=== PATIENT | female | born 1985 | race Two or more races ===

== ENCOUNTER 2021-08-21 17:18 | Emergency (ER) | payer MEDICAID, OTHER ==
[~2021-08-21] VITALS: Ht 160 cm; Wt 72.6 kg
[2021-08-21 17:21] VITALS: BP 146/119
[2021-08-21 18:17] LABS: Basophils # (auto) 0.1 10 ^3/uL (0-0.2); Basophils % (auto) 0.6 % (0.0-2.0); Eosinophils # (auto) 0.1 10 ^3/uL (0-0.8); Eosinophils % (auto) 0.8 % (0.0-7.0); Hematocrit 39.9 % (36.0-46.0); Hemoglobin 13.5 g/dL (12.2-16.2); Lymphocytes # (auto) 1.5 10 ^3/uL (0.4-5.4); Lymphocytes % (auto) 13.7 % (10.0-50.0); Mean Corpuscular Hemoglobin 27.8 pg (28.0-32.0); Mean Corpuscular Hgb Conc. 33.7 g/dL (32.0-36.0); Mean Corpuscular Volume 82.5 fL (80.0-100.0); Monocytes # (auto) 0.4 10 ^3/uL (0-1.3); Monocytes % (auto) 3.9 % (0.0-12.0); Neutrophils # (auto) 8.6 10 ^3/uL (1.6-8.6); Red Blood Cells 4.84 10^6/uL (4.0-5.20); Red Cell Distribution Width 14.9 % (11.8-14.3); White Blood Cell 10.6 10^3/uL (4.4-10.8)
[2021-08-21 18:35] LABS: Albumin 3.1 g/dL (3.4-5.0); Calcium 8.7 mg/dL (8.5-10.1); Potassium 3.9 mmol/L (3.5-5.1)
[2021-08-21 18:38] LABS: Bilirubin, Total 0.4 mg/dL (0.2-1.0); Total Protein 7.7 g/dL (6.4-8.2)
[2021-08-21] MEDS ORDERED: metroNIDAZOLE 500MG/100ML 100 ML IV ONE (19:15)
[2021-08-21] MEDS ORDERED: MORPHINE SULFATE INJ 2 MG/ml SYRG IV ONE (19:15)
[2021-08-21] MEDS ORDERED: ONDANSETRON HCL 4 MG/2 ML VIAL IV ONE (19:15)
[2021-08-21 20:46] LABS: Urine Bacteria NONE SEEN /hpf (None Seen); Urine Blood Negative /uL (Negative); Urine Hyaline Cast FEW /lpf (0 - 2); Urine Mucus FEW (None Seen); Urine WBC 105 /hpf (0 - 5)
[2021-08-21] MEDS ORDERED: cefTRIAXone 1GM/50ML D5W 50 ML IV ONE (21:45)
[2021-08-21] MEDS ORDERED: NITR-87 PO (22:00)
== END 2021-08-22 00:45 | disposition home or self-care (01) ==
LOC: ER 17:18
DX: K52.9 Noninfective gastroenteritis and colitis, unspecified (principal); I10 Essential (primary) hypertension; K21.9 Gastro-esophageal reflux disease without esophagitis; Z88.8 Allergy status to other drugs, medicaments and biological substances
CPT/HCPCS: 36415; 74176; 80053; 81001; 82150; 83690; 85025; 96365; 96368; 96375; 99284; J0696; J2405; J3490

== ENCOUNTER 2021-08-31 11:14 | Emergency (ER) | payer MEDICAID ==
[~2021-08-31] VITALS: Ht 160 cm; Wt 75.7 kg
[~2021-08-31 11:14] MED LIST: NITR-87 PO
[2021-08-31 11:16] VITALS: BP 140/85
[2021-08-31 12:20] LABS: Urine Bacteria FEW /hpf (None Seen); Urine Blood Negative /uL (Negative); Urine Hyaline Cast MOD /lpf (0 - 2); Urine Mucus FEW (None Seen); Urine Specific Gravity 1.032 (1.001-1.035); Urine WBC 47 /hpf (0 - 5)
[2021-08-31] MEDS ORDERED: cefTRIAXone SOD 1,000 MG VL IM ONE (13:15)
[2021-08-31] MEDS ORDERED: IBUP800T27 PO (13:22)
[2021-08-31] MEDS ORDERED: CIPR-173 PO (13:22)
[2021-08-31] MEDS ORDERED: ACET-1080 PO (13:27)
== END 2021-08-31 13:28 | disposition home or self-care (01) ==
LOC: ER 11:14
DX: N39.0 Urinary tract infection, site not specified (principal); K21.9 Gastro-esophageal reflux disease without esophagitis; I12.9 Hypertensive chronic kidney disease with stage 1 through stage 4 chronic kidney disease, or unspecified chronic kidney disease; N18.9 Chronic kidney disease, unspecified; Z79.1 Long term (current) use of non-steroidal anti-inflammatories (NSAID); Z79.2 Long term (current) use of antibiotics; Z79.899 Other long term (current) drug therapy; Z88.8 Allergy status to other drugs, medicaments and biological substances
CPT/HCPCS: 81001; 81025; 96372; 99283; J0696

== ENCOUNTER 2024-08-31 15:34 | Emergency (ER) | payer BC, MEDICAID ==
[~2024-08-31] VITALS: Ht 160 cm; Wt 85.9 kg
[~2024-08-31 15:34] MED LIST changes: +ACET-1080 PO; +CIPR-173 PO
[2024-08-31 15:47] VITALS: TEMP 98.1
--- NOTE | 2024-08-31 15:54 | ED.PDOC ---
Musculoskeletal HPI Comments 39-year-old female with a history of hypertension, epilepsy, stage III CKD, anxiety and depression brought in by family for evaluation of bilateral foot edema since yesterday. Patient also notes mild hand swelling, stating that she had difficulty removing her ring yesterday. She denies any shortness of breath or pain. She does admit to a tingling sensation in both feet intermittently, as well as intermittent calf cramping. Chief Complaint: Extremity Swelling Time Seen by MD: 15:45 Reviewed Notes: Nurses Notes, Medications, Allergies Allergies: Coded Allergies: Phenytoin (Verified Allergy, Unknown, 08/21/21) Home Meds Active Scripts Acetaminophen (Tylenol 8 Hour Arthritis) 650 Mg Tab, 650 MG PO TID, #30 TAB Prov:GAMA WATERS 08/31/21 Ciprofloxacin Hcl (Cipro) 500 Mg Tab, 500 MG PO BID for 7 Days, #14 TAB Prov:GAMA WATERS 08/31/21 Nitrofurantoin Monohydrate Mac (Macrobid) 100 Mg Cap, 100 MG PO BID for 7 Days, #14 CAP Prov:JOSE ARMANDO MELÉNDEZ MD 08/21/21 Information Source: Patient Mode of Arrival: Ambulatory Location: Left (hand swelling), Bilateral Extremity Location: Ankle, Foot Timing: Hours Prehospital treatment: None Severity: Moderate Able to Move Extremity: Yes Bear Weight: Fully Pain: Mild Hand Dominance: Right Mechanism: Unknown Circumstances: Spontaneous Onset of Symptoms: Spontaneous Symptoms: Swelling DVT Risk Factors: NONE Associated signs and symptoms: Swelling (bilateral ankles/feet) Past Medical History PAST MEDICAL HISTORY: Anxiety, CKF (Stage 3), Depression, HTN, Seizures Surgical History (Other): Oral Sx, Kidnay Biopsy DIRECTOR OF FINANCE History: No Pertinent DIRECTOR OF FINANCE History Family History Family History: Reviewed,noncontributory to illness, Unknown Social History Smoker: Non-Smoker Alcohol: Denies ETOH Use Drugs: Denies Drug Use Lives In: Home Constitutional: denies: chills, diaphoresis, fatigue, fever, malaise, sweats, weakness, others EENTM: denies: blurred vision, double vision, ear bleeding, ear discharge, ear drainage, ear pain, ear ringing, eye pain, eye redness, hearing loss, mouth pain, mouth swelling, nasal discharge, nose bleeding, nose congestion, nose pain, photophobia, tearing, throat pain, throat swelling, voice changes, others Respiratory: denies: cough, hemoptysis, orthopnea, SOB at rest, shortness of breath, SOB with excertion, stridor, wheezing, others Cardiovascular: reports: edema (bilateral ankle/feet and left hand); denies: chest pain, dizzy spells, diaphoresis, Dyspnea on exertion, irregular heart beat, left arm pain, lightheadedness, palpitations, PND, syncope, others Gastrointestinal: denies: abdomen distended, abdominal pain, blood streaked bowels, constipated, diarrhea, dysphagia, difficulty swallowing, hematemesis, melena, nausea, poor appetite, poor fluid intake, rectal bleeding, rectal pain, vomiting, others Genitourinary: denies: abnormal vagina bleeding, burning, dyspareunia, dysuria, flank pain, frequency, hematuria, incontinence, pain, , vagina discharge, urgency, others Neurological: denies: dizziness, fainting, headache, left sided numbness, left sided weakness, numbness, paresthesia, pre-existing deficit, right sided numbness, right sided weakness, seizure, speech problems, tingling, tremors, weakness, others Musculoskeletal: denies: back pain, gout, joint pain, joint swelling, muscle pain, muscle stiffness, neck pain, others Integumetry: denies: bruises, change in color, change in hair/nails, dryness, laceration, lesions, lumps, rash, wounds, others Allergic/Immunocompromised: denies: Difficulty Healing, Frequent Infections, Hives, Itching, others Hematologic/Lymphatic: denies: anemia, blood clots, easy bleeding, easy bruising, swollen glands, others Endocrine: denies: excessive hunger, excessive sweating, excessive thirst, excessive urination, flushing, intolerance to cold, intolerance to heat, unexplained weight gain, unexplained weight loss, others Psychiatric: denies: anxiety, bipolar disorder, depression, hopeless, panic disorder, schizophrenia, sleepless, suicidal, others All Other Systems: Reviewed and Negative Physical Exam General Appearance: No Apparent Distress, Obese HEENT: Other (Pupils and face symmetric. Moist mucous membranes.) Neck: Full Range of Motion, Normal Inspection Respiratory: Lungs Clear, No Accessory Muscle Use, No Respiratory Distress, Normal Breath Sounds Cardiovascular: No JVD, Regular Rate/Rhythm Breast Exam: Deferred Gastrointestinal: Non Tender, Soft Genitalia: Deferred Pelvic: Deferred Rectal: Deferred Extremities: No calf tenderness, Normal range of motion, Non-tender, Pedal edema Musculoskeletal : Apperance: Normal Neurologic: Alert (Oriented x4), Normal Affect, Other (Appears anxious. Ambulatory without difficulty.) Cerebellar Function: NOT DONE Reflexes: NOT DONE Skin: Dry, Normal Color, Warm Lymphatic: NOT DONE Was a procedure done? Was a procedure done?: No Differential Diagnosis EXT Differential Diagnosis: CHF, Deep Vein Thrombosis Other Differential Diagnosis Worsening kidney function/renal failure, liver disease, venous insufficiency, among others X-Ray, Labs, Meds, VS Vital Signs Date Time Temp Pulse Resp B/P (MAP) Pulse Ox O2 Delivery O2 Flow Rate FiO2 08/31/24 17:40 69 16 98 Room Air 08/31/24 17:40 72 18 129/85 (100) 98 08/31/24 16:00 135/79 08/31/24 15:47 98.1 77 18 149/88 (108) 95 98.1 Lab Test 08/31/24 18:20 08/31/24 17:29 08/31/24 16:27 Range/Units Urine Color Light-yellow Yellow Urine Clarity Clear Clear Urine pH 5.5 5.0-9.0 Urine Specific [place] 1.012 1.001-1.035 Urine Protein Negative Negative Urine Ketones Negative Negative Urine Blood Negative Negative /uL Urine Nitrite Negative Negative Urine Bilirubin Negative Negative Urine Urobilinogen Normal Negative mg/dL Urine Leukocyte Esterase 1+ Negative /uL Urine RBC 8 0 - 4 /hpf Urine Microscopic WBC 5 0-5 /HPF Urine Squamous Epithelial Cells Few <5 /hpf Urine Bacteria Few H None Seen /hpf Urine Glucose Normal Normal mg/dL Urine Test Negative Negative Troponin I High Sensitivity < 3 L < 3 L </=34 ng/L White Blood Count 9.9 4.4-10.8 10^3/uL Red Blood Count 4.43 4.0-5.20 10^6/uL Hemoglobin 12.4 12.2-16.2 g/dL Hematocrit 37.7 36.0-46.0 % Mean Corpuscular Volume 85.1 80.0-100.0 fL Mean Corpuscular Hemoglobin 27.9 L 28.0-32.0 pg Mean Corpuscular Hemoglobin Concent 32.8 32.0-36.0 g/dL Red Cell Distribution Width 15.0 H 11.8-14.3 % Platelet Count 290 140-450 10^3/uL Mean Platelet Volume 9.0 6.9-10.8 fL Neutrophils (%) (Auto) 61.0 37.0-80.0 % Lymphocytes (%) (Auto) 30.3 10.0-50.0 % Monocytes (%) (Auto) 5.8 0.0-12.0 % Eosinophils (%) (Auto) 2.2 0.0-7.0 % Basophils (%) (Auto) 0.7 0.0-2.0 % Neutrophils # (Auto) 6.1 1.6-8.6 10 ^3/uL Lymphocytes # (Auto) 3.0 0.4-5.4 10 ^3/uL Monocytes # (Auto) 0.6 0-1.3 10 ^3/uL Eosinophils # (Auto) 0.2 0-0.8 10 ^3/uL Basophils # (Auto) 0.1 0-0.2 10 ^3/uL Nucleated Red Blood Cells 0.1 % Sodium Level 140 136-145 mmol/L Potassium Level 4.2 3.5-5.1 mmol/L Chloride Level 106 98-107 mmol/L Carbon Dioxide Level 27 20-31 mmol/L Anion Gap 7 5-15 Blood Urea Nitrogen 12 9-23 mg/dL Creatinine 1.03 H 0.550-1.02 mg/dL Glomerular Filtration Rate Calc 70 >90 mL/min BUN/Creatinine Ratio 11.7 10.0-20.0 Serum Glucose 82 74-106 mg/dL Calcium Level 10.1 8.7-10.4 mg/dL B-Type Natriuretic Peptide 25.87 0-100 pg/mL Current Medications Medications (Trade) Dose Ordered Sig/Logan Route Start Time Stop Time Status Last Admin Nifedipine (Procardia Capsule) 60 mg ONCE ONCE PO 08/31/24 16:00 08/31/24 16:01 DC 08/31/24 16:00 PROCEDURE(s): CXRP - CHEST PORTABLE REASON: edema ORDER NUMBER(s): [id number], ACCESSION NUMBER(s): [id number] INDICATION: edema TECHNIQUE: Frontal view of the chest. COMPARISON: None FINDINGS: . The heart and mediastinal contours are grossly unremarkable. There is no evidence of pleural disease. The lungs are clear. The bony structures of the chest are intact without fracture. IMPRESSION: 1. No evidence of acute disease. EDURE(s): BLDVT - BiLat Lower DVT REASON: ble edema ORDER NUMBER(s): [id number], ACCESSION NUMBER(s): [id number] Bilateral lower extremity venous Doppler INDICATION: ble edema TECHNIQUE: Duplex venous sonography was performed with real-time and flow sensitive images submitted for evaluation. FINDINGS: Normal phasic venous flow. Veins are fully compressible. No filling defects. IMPRESSION: 1. No evidence of deep vein thrombosis. X-Ray, Labs, Meds, VS Comment 39-year-old female with a history of hypertension, stage III CKD, epilepsy, depression and anxiety presenting with bilateral foot edema Vitals remarkable for BP 149/88 Exam remarkable for mild bilateral nonpitting foot and ankle edema Rhythm strip independently interpreted by me: Sinus rhythm, rate 77, no ectopy. Chest x-ray unremarkable Bilateral lower extremity ultrasound negative for DVT CBC, basic metabolic panel, BNP, troponin, UA and urine unremarkable for any abnormality of acute significance Patient treated with the following in the ED: Nifedipine 60 mg p.o. with improvement of blood pressure Hospitalization was considered, however patient had improvement of her blood pressure with treatment in the ED, workup is essentially unremarkable, and I no longer feel hospitalization is necessary. Patient now appears stable for discharge with close outpatient follow-up with her primary physician. Time of 1ST Reevaluation: 16:15 Reevaluation 1ST: Unchanged Time of 2ND Reevaluation: 19:24 Reevaluation 2ND: Improved Patient Education/Counseling: Diagnosis, Treatment, Prognosis Family Education/Counseling: No Family Present Departure 1 Departure Time of Disposition: 19:24 Impression: Primary Impression: Edema Qualified Codes: R60.9 - Edema, unspecified Disposition: 01 HOME / SELF CARE / HOMELESS Condition: Stable Additional Instructions: Your blood tests, including screening test for heart attack and heart failure, were unremarkable. Your chest x-ray was unremarkable. Your ultrasound did not show any evidence of blood clots. Follow-up with your primary doctor in 1-2 days. Return to ER for persistent or worsening symptoms. Discharged With: Self Critical Care Note Critical Care Time?: No Stability Stability form required: No Heart Score Heart Score: Heart Score Response (Comments) Value History N/A 0 EKG N/A 0 Age N/A 0 Risk Factors N/A 0 Troponin N/A 0 Total 0 I personally scribed for SHAINA MORAN MD ([email or web address]) on 08/31/24 at 15:54. Electronically submitted by Gabriel Nava ([email or web address]). SHAINA MORAN MD Aug 31, 2024 15:54
[2024-08-31] MEDS: NIFEdipine 10 MG CAP PO ONE (16:00)
--- NOTE | 2024-08-31 16:26 | DVH ---
Bilateral lower extremity venous Doppler INDICATION: ble edema TECHNIQUE: Duplex venous sonography was performed with real-time and flow sensitive images submitted for evaluation. FINDINGS: Normal phasic venous flow. Veins are fully compressible. No filling defects. IMPRESSION: 1. No evidence of deep vein thrombosis.
[2024-08-31 16:48] LABS: Basophils # (auto) 0.1 10 ^3/uL (0-0.2); Basophils % (auto) 0.7 % (0.0-2.0); Eosinophils # (auto) 0.2 10 ^3/uL (0-0.8); Eosinophils % (auto) 2.2 % (0.0-7.0); Hematocrit 37.7 % (36.0-46.0); Hemoglobin 12.4 g/dL (12.2-16.2); Lymphocytes % (auto) 30.3 % (10.0-50.0); Mean Corpuscular Hemoglobin 27.9 pg (28.0-32.0); Mean Corpuscular Hgb Conc. 32.8 g/dL (32.0-36.0); Mean Corpuscular Volume 85.1 fL (80.0-100.0); Monocytes # (auto) 0.6 10 ^3/uL (0-1.3); Monocytes % (auto) 5.8 % (0.0-12.0); Neutrophils # (auto) 6.1 10 ^3/uL (1.6-8.6); Nucleated Red Blood Cells % 0.1 %; Platelet Count (auto) 290 10^3/uL (140-450); Red Blood Cells 4.43 10^6/uL (4.0-5.20); White Blood Cell 9.9 10^3/uL (4.4-10.8)
[2024-08-31 16:55] LABS: Chloride 106 mmol/L (98-107); Potassium 4.2 mmol/L (3.5-5.1); Sodium 140 mmol/L (136-145)
[2024-08-31 16:56] LABS: Anion Gap 7 (5-15); Calcium 10.1 mg/dL (8.7-10.4); Carbon Dioxide 27 mmol/L (20-31)
[2024-08-31 17:01] LABS: BUN/Creatinine Ratio 11.7 (10.0-20.0); Blood Urea Nitrogen 12 mg/dL (9-23); Glucose 82 mg/dL (74-106)
[2024-08-31 17:40] VITALS: BP 129/85; PULSE 69; RESP 16; O2SAT 98
[2024-08-31 19:00] LABS: Urine Bacteria FEW /hpf (None Seen); Urine Blood Negative /uL (Negative); Urine Clarity Clear (Clear); Urine Color Light-Yellow (Yellow); Urine Protein, UAD Negative (Negative); Urine Specific Gravity 1.012 (1.001-1.035); Urine Squamous Epithelial Cell FEW /hpf (<5); Urine Urobilinogen Normal (Negative); Urine WBC 5 /HPF (0-5); Urine pH 5.5 (5.0-9.0)
--- NOTE | 2024-08-31 19:25 | DVH ---
INDICATION: edema TECHNIQUE: Frontal view of the chest. COMPARISON: None FINDINGS: . The heart and mediastinal contours are grossly unremarkable. There is no evidence of pleural disea se. The lungs are clear. The bony structures of the chest are intact without fracture. IMPRESSION: 1. No evidence of acute disease.
== END 2024-08-31 19:45 | disposition home or self-care (01) ==
LOC: ER 15:34
DX: R60.0 Localized edema (principal); F41.9 Anxiety disorder, unspecified; F32.A Depression, unspecified; G40.909 Epilepsy, unspecified, not intractable, without status epilepticus; I12.9 Hypertensive chronic kidney disease with stage 1 through stage 4 chronic kidney disease, or unspecified chronic kidney disease; N18.30 Chronic kidney disease, stage 3 unspecified; Z98.890 Other specified postprocedural states; Z88.1 Allergy status to other antibiotic agents; Z79.899 Other long term (current) drug therapy
CPT/HCPCS: 36415; 71045; 80048; 81001; 81025; 83880; 84484; 85025; 93970

== ENCOUNTER 2024-10-07 08:49 | Emergency (ER) | payer BC, MEDICAID ==
[~2024-10-07] VITALS: Ht 160 cm; Wt 82.7 kg
[2024-10-07 09:05] VITALS: TEMP 99.6
--- NOTE | 2024-10-07 09:22 | ED.PDOC ---
GI ASSESSMENT HPI Comments 39-year-old female presents with a chief complaint of fatigue, chills, nausea, and vomiting x2 days. Patient denies any abdominal pain or diarrhea at this time. Patient mention that she has been unable to keep liquids or solids down without vomiting. Patient denies any sick contacts. Patient is not actively vomiting at this time. Chief Complaint: Nausea/Vomiting Time Seen by MD: 09:14 Primary Care Provider: unknown Reviewed Notes: Medications, Allergies Allergies: Coded Allergies: Phenytoin (Verified Allergy, Unknown, 08/21/21) Home Meds Active Scripts Acetaminophen (Tylenol 8 Hour Arthritis) 650 Mg Tab, 650 MG PO TID, #30 TAB Prov:GAMA WATERS 08/31/21 Ciprofloxacin Hcl (Cipro) 500 Mg Tab, 500 MG PO BID for 7 Days, #14 TAB Prov:GAMA WATERS 08/31/21 Nitrofurantoin Monohydrate Mac (Macrobid) 100 Mg Cap, 100 MG PO BID for 7 Days, #14 CAP Prov:JOSE ARMANDO MELÉNDEZ MD 08/21/21 Information Source: Patient Mode of Arrival: Ambulatory Timing: Days Duration: Since onset Prehospital treatment: None Quality: None Vomitus: Food Particles Stool: Normal Severity: Moderate Recent: None Recent Hx of: None Pain Location: None Associated sign and symptoms: Nausea, Vomiting Past Medical History PAST MEDICAL HISTORY: Anxiety, CKF, Depression, HTN, Seizures JET PILOT History: No Pertinent JET PILOT History Family History Family History: Reviewed,noncontributory to illness, Unknown Social History Smoker: Non-Smoker Alcohol: Denies ETOH Use Drugs: Denies Drug Use Lives In: Home Constitutional: reports: chills, fatigue; denies: diaphoresis, fever, malaise, sweats, weakness, others EENTM: denies: blurred vision, double vision, ear bleeding, ear discharge, ear drainage, ear pain, ear ringing, eye pain, eye redness, hearing loss, mouth pain, mouth swelling, nasal discharge, nose bleeding, nose congestion, nose pain, photophobia, tearing, throat pain, throat swelling, voice changes, others Respiratory: denies: cough, hemoptysis, orthopnea, SOB at rest, shortness of breath, SOB with excertion, stridor, wheezing, others Cardiovascular: denies: chest pain, dizzy spells, diaphoresis, Dyspnea on ex ertion, edema, irregular heart beat, left arm pain, lightheadedness, palpitations, PND, syncope, others Gastrointestinal: reports: nausea, vomiting; denies: abdomen distended, abdominal pain, blood streaked bowels, constipated, diarrhea, dysphagia, difficulty swallowing, hematemesis, melena, poor appetite, poor fluid intake, rectal bleeding, rectal pain, others Genitourinary: denies: abnormal vagina bleeding, burning, dyspareunia, dysuria, flank pain, frequency, hematuria, incontinence, pain, , vagina discharge, urgency, others Neurological: denies: dizziness, fainting, headache, left sided numbness, left sided weakness, numbness, paresthesia, pre-existing deficit, right sided numbness, right sided weakness, seizure, speech problems, tingling, tremors, weakness, others Musculoskeletal: denies: back pain, gout, joint pain, joint swelling, muscle pain, muscle stiffness, neck pain, others Integumetry: denies: bruises, change in color, change in hair/nails, dryness, laceration, lesions, lumps, rash, wounds, others Allergic/Immunocompromised: denies: Difficulty Healing, Frequent Infections, Hives, Itching, others Hematologic/Lymphatic: denies: anemia, blood clots, easy bleeding, easy bruisi ng, swollen glands, others Endocrine: denies: excessive hunger, excessive sweating, excessive thirst, exce ssive urination, flushing, intolerance to cold, intolerance to heat, unexplained weight gain, unexplained weight loss, others Psychiatric: denies: anxiety, bipolar disorder, depression, hopeless, panic disorder, schizophrenia, sleepless, suicidal, others All Other Systems: Reviewed and Negative Physical Exam General Appearance: No Apparent Distress, Normal HEENT: Normal ENT Inspection, Pharynx Normal, TMs Normal Neck: Full Range of Motion, Non-Tender, Normal, Normal Inspection Respiratory: Chest Non-Tender, Lungs Clear, No Accessory Muscle Use, No Respiratory Distress, Normal Breath Sounds Cardiovascular: No Edema, No JVD, No Murmur, No Gallop, Normal Peripheral Pulses, Regular Rate/Rhythm Breast Exam: Deferred Gastrointestinal: No Organomegaly, Non Tender, No Pulsatile Mass, Normal Bowel Sounds, Soft Genitalia: Deferred Pelvic: Deferred Rectal: Deferred Extremities: No calf tenderness, Normal capillary refill, Normal inspection, Normal range of motion, Non-tender, No pedal edema Musculoskeletal : Apperance: Normal Neurologic: Alert, sales merchandiser II-XII nml as Tested, No Motor Deficits, Normal Affect, Normal Mood, No Sensory Deficits Cerebellar Function: Normal Reflexes: Normal Skin: Dry, Normal Color, Warm Lymphatic: No Adenopathy Was a procedure done? Was a procedure done?: No GI differential Dx Differential Diagnosis: Gastroenteritis, UTI, Dehydration, Electrolyte Imbalance X-Ray, Labs, Meds, VS Vital Signs Date Time Temp Pulse Resp B/P (MAP) Pulse Ox O2 Delivery O2 Flow Rate FiO2 10/07/24 09:48 107 18 98 Room Air 10/07/24 09:48 107 18 134/85 (101) 95 10/07/24 09:05 99.6 111 20 96/68 (77) 97 99.6 Lab Test 10/07/24 09:45 10/07/24 09:20 Range/Units White Blood Count 11.6 H 4.4-10.8 10^3/uL Red Blood Count 4.80 4.0-5.20 10^6/uL Hemoglobin 12.9 12.2-16.2 g/dL Hematocrit 39.9 36.0-46.0 % Mean Corpuscular Volume 83.1 80.0-100.0 fL Mean Corpuscular Hemoglobin 26.9 L 28.0-32.0 pg Mean Corpuscular Hemoglobin Concent 32.4 32.0-36.0 g/dL Red Cell Distribution Width 15.3 H 11.8-14.3 % Platelet Count 474 H 140-450 10^3/uL Mean Platelet Volume 8.3 6.9-10.8 fL Neutrophils (%) (Auto) 90.6 H 37.0-80.0 % Lymphocytes (%) (Auto) 5.6 L 10.0-50.0 % Monocytes (%) (Auto) 3.1 0.0-12.0 % Eosinophils (%) (Auto) 0.5 0.0-7.0 % Basophils (%) (Auto) 0.2 0.0-2.0 % Neutrophils # (Auto) 10.5 H 1.6-8.6 10 ^3/uL Lymphocytes # (Auto) 0.7 0.4-5.4 10 ^3/uL Monocytes # (Auto) 0.4 0-1.3 10 ^3/uL Eosinophils # (Auto) 0.1 0-0.8 10 ^3/uL Basophils # (Auto) 0 0-0.2 10 ^3/uL Nucleated Red Blood Cells 0.0 % Sodium Level 138 136-145 mmol/L Potassium Level 3.6 3.5-5.1 mmol/L Chloride Level 107 98-107 mmol/L Carbon Dioxide Level 18 L 20-31 mmol/L Anion Gap 13 5-15 Blood Urea Nitrogen 12 9-23 mg/dL Creatinine 1.27 H 0.550-1.02 mg/dL Glomerular Filtration Rate Calc 55 >90 mL/min BUN/Creatinine Ratio 9.4 L 10.0-20.0 Serum Glucose 135 H 74-106 mg/dL Calcium Level 10.6 H 8.7-10.4 mg/dL Urine Color Light-yellow Yellow Urine Clarity Clear Clear Urine pH 6.0 5.0-9.0 Urine Specific [place] 1.018 1.001-1.035 Urine Protein Trace H Negative Urine Ketones Negative Negative Urine Blood Negative Negative /uL Urine Nitrite Negative Negative Urine Bilirubin Negative Negative Urine Urobilinogen Normal Negative mg/dL Urine Leukocyte Esterase Negative Negative /uL Urine RBC <1 0 - 4 /hpf Urine Microscopic WBC 1 0-5 /HPF Urine Squamous Epithelial Cells Few <5 /hpf Urine Bacteria Few H None Seen /hpf Urine Mucus Few None Seen Urine Glucose Trace Normal mg/dL Current Medications Medications (Trade) Dose Ordered Sig/Logan Route Start Time Stop Time Status Last Admin Sodium Chloride 1,000 ml @ 1,000 mls/hr Q1H ONCE IV 10/07/24 09:30 10/07/24 10:29 DC 10/07/24 10:02 Ondansetron HCl (Zofran) 4 mg ONCE ONCE IV 10/07/24 09:30 10/07/24 09:31 DC 10/07/24 10:03 Famotidine (Pepcid Injection) 20 mg ONCE ONCE IV 10/07/24 09:30 10/07/24 09:31 DC 10/07/24 10:02 Time of 1ST Reevaluation: 09:44 Reevaluation 1ST: Unchanged Patient Education/Counseling: Diagnosis, Treatment, Prognosis Family Education/Counseling: No Family Present SEPSIS Sepsis Screen Vital Signs Date Time Temp Pulse Resp B/P (MAP) Pulse Ox O2 Delivery O2 Flow Rate FiO2 10/07/24 09:48 107 18 98 Room Air 10/07/24 09:48 107 18 134/85 (101) 95 10/07/24 09:05 99.6 111 20 96/68 (77) 97 99.6 Laboratory Tests Test 10/07/24 09:45 White Blood Count 11.6 10^3/uL (4.4-10.8) H Medications Medications Dose Ordered Sig/Logan Route Start Time Stop Time Status Last Admin Dose Admin Famotidine 20 mg ONCE ONCE IV 10/07/24 09:30 10/07/24 09:31 DC 10/07/24 10:02 Ondansetron HCl 4 mg ONCE ONCE IV 10/07/24 09:30 10/07/24 09:31 DC 10/07/24 10:03 Sodium Chloride 1,000 ml @ 1,000 mls/hr Q1H ONCE IV 10/07/24 09:30 10/07/24 10:29 DC 10/07/24 10:02 Departure 1 Departure Time of Disposition: 11:22 (Patient likely with gastroenteritis. We will discharge patient home with outpatient follow up) Impression: Primary Impression: Acute gastroenteritis Disposition: HOME / SELF CARE / HOMELESS Condition: Stable Additional Instructions: You likely have a viral illness. It is important to stay well rested and well hydrated. You can take Tylenol and Motrin as needed for pain and fever. For a sore throat you can drink warm tea with honey. You can take [id number] pseudoephedrine for nasal congestion. He should follow up with your regular doctor within 1 week to ensure you are doing better. If your symptoms worsen or you have any other concerns please return to the emergency room. Discharged With: Self Critical Care Note Critical Care Time?: No Stability Stability form required: No Heart Score Heart Score: Heart Score Response (Comments) Value History N/A 0 EKG N/A 0 Age N/A 0 Risk Factors N/A 0 Troponin N/A 0 Total 0 I personally scribed for MAMIE HARRINGTON MD ([email or web address]) on 10/07/24 at 09:22. Electronically submitted by Aristides Gurrola ([email or web address]). MAMIE HARRINGTON MD Oct 07, 2024 09:22
[2024-10-07 09:48] VITALS: BP 134/85; PULSE 107; RESP 18; O2SAT 98
[2024-10-07] MEDS: SODIUM CHLORIDE 0.9% 1,000 ML IV ONE (10:02)
[2024-10-07] MEDS: FAMOTIDINE (10MG/ML) 2ML VL IV ONE (10:02)
[2024-10-07] MEDS: ONDANSETRON HCL 4 MG/2 ML VIAL IV ONE (10:03)
[2024-10-07 10:14] LABS: Hematocrit 39.9 % (36.0-46.0); Hemoglobin 12.9 g/dL (12.2-16.2); Mean Corpuscular Hemoglobin 26.9 pg (28.0-32.0); Mean Corpuscular Volume 83.1 fL (80.0-100.0); Nucleated Red Blood Cells % 0.0 %
[2024-10-07 10:27] LABS: Chloride 107 mmol/L (98-107); Potassium 3.6 mmol/L (3.5-5.1); Sodium 138 mmol/L (136-145)
[2024-10-07 10:28] LABS: Anion Gap 13 (5-15)
[2024-10-07 10:29] LABS: Calcium 10.6 mg/dL (8.7-10.4); Carbon Dioxide 18 mmol/L (20-31)
[2024-10-07 10:33] LABS: BUN/Creatinine Ratio 9.4 (10.0-20.0); Blood Urea Nitrogen 12 mg/dL (9-23)
[2024-10-07 10:35] LABS: Glucose 135 mg/dL (74-106)
[2024-10-07 11:10] LABS: Urine Protein, UAD TRACE (Negative)
[2024-10-07] MEDS: ACETAMINOPHEN 325 MG TAB PO ONE (11:37)
[2024-10-07] MEDS: KETOROLAC TROMETH 30 MG/ML 1ML VIAL IV ONE (11:37)
== END 2024-10-07 11:38 | disposition home or self-care (01) ==
LOC: ER 08:49
DX: K52.9 Noninfective gastroenteritis and colitis, unspecified (principal); I10 Essential (primary) hypertension; F41.9 Anxiety disorder, unspecified; F32.A Depression, unspecified; Z88.1 Allergy status to other antibiotic agents
CPT/HCPCS: 36415; 80048; 81001; 85025; 96361; 96374; 96375; 99284; J2405; J3490; J7030